=== PATIENT | female | born 1945 | race Caucasian/White ===

== ENCOUNTER → 2021-04-04 | Outpatient (CLI) | payer MEDICARE, OTHER | LOC: MRI 07:14 | PROVIDERS: ATTEND Anesthesiology Pain Medicine | DX: M54.17 Radiculopathy, lumbosacral region (principal); M46.1 Sacroiliitis, not elsewhere classified; M25.562 Pain in left knee; M25.561 Pain in right knee | CPT/HCPCS: 72148; 72202 ==